=== PATIENT | male | born 1975 | race African-American/Black ===

== ENCOUNTER 2020-05-09 18:56 | Emergency (ER) | payer BC, SELFPAY ==
--- NOTE | 2020-05-09 18:59 | PC.NURSE ---
Pt arrived via EMS and is standing in hallway stating that he doesn't have to do anything we tell him. i am not wanting to be seen Pt tells this RN that he is going margret you you dont care about my back injury Pt is walking around talking on phone pointing finger at this RN. Pt refused to go into room for this RN so security was called. Pt then tells this RN that he doesn't want me as his nurse because I am being combative . Pt states that you will wait until I am ready to be seen Informed pt that this is now how the ER works either he is seen in a room by a Dr. or he can sign AMA paperwork and leave. Pt then states he is going to [facility] . Pt is sitting in chair in RN and refuses to get into a gown or allow us to get vitals. Charge nurse made aware of this.
--- NOTE | 2020-05-09 19:00 | PC.NURSE ---
pt. has been refusing all care and uncooperative with everything including getting registered; registration had to speak to had to talk to a female on pt.'s cell phone to get name or any information. Security in dept.
--- NOTE | 2020-05-09 19:45 | PC.NURSE ---
spoke with patient, he has a ride home and wants to refuse treatment from us at this time. explained to patient that he would need to have his ride come inside the ED to assume care for him. pt agreed and said his ride would be here is approx 30 mins.
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
== END 2020-05-09 20:08 | disposition left against medical advice (07) ==
PROVIDERS: Emergency Provider Emergency Medicine; Family Provider Orthopaedic Surgery; PCP Orthopaedic Surgery
DX: Z53.21 Procedure and treatment not carried out due to patient leaving prior to being seen by health care provider (principal)
CPT/HCPCS: 99199; L0140